=== PATIENT | male | born 1995 | race Caucasian/White ===

== ENCOUNTER 2017-07-25 09:56 | Emergency (ER) | payer OTHER ==
[~2017-07-25] VITALS: Ht 188 cm; Wt 74.3 kg
[2017-07-25 10:03] VITALS: TEMP 36.4; Ht 188 cm; Wt 74.3 kg
[2017-07-25 10:21] VITALS: O2SAT 100
--- NOTE | 2017-07-25 10:32 | EMERGENCY ROOM VISIT NOTE ---
History First contact with patient: 10:15 Chief Complaint: CHEST PAIN Stated Complaint: CHEAST PAINS, SOB, LIGHTHEADED Nursing Triage Summary: Chest pain for a few hours, lightheaded. Hx aortic valve stenosis. Chest pain 04/27. History of Present Illness The patient is a 21 year old male who presents to the Emergency Room with complaints of generalized chest pain worse over the past 4-6 hours. The patient states that he has had intermittent chest pain for the past couple of weeks. Pain seems to be worse with deep breath or movement. Pain is described as a 7 out of 10. There is no radiation. The patient does admit to drinking alcohol last night but denies any other drugs. The patient has a history of aortic stenosis and a heart murmur. He denies shortness of breath. Source of History: patient Symptom Intensity: moderate Quality: pressure Timing: intermittent Modifying Factors (Worsening): breathing, movement Review of Systems All systems have been listed, reviewed, and are negative other than those previously mentioned. Please see Additional Medical History Sheet. Past Medical/Surgical History Medical Problems: (1) No pertinent past medical history Family History No pertinent family history stated. Social History Smoking Status: Never Smoker Alcohol Use: occasionally Drug Use: none Marital Status: single Housing Status: lives with roommate Occupation Status: [employer] student Current/Historical Medications No Active Prescriptions or Reported Meds Physical Exam Vital Signs Date Time Temp Pulse Resp B/P (MAP) Pulse Ox O2 Delivery O2 Flow Rate FiO2 07/25/17 12:56 79 18 104/62 98 07/25/17 11:58 81 18 107/52 100 Room Air 07/25/17 10:21 100 Room Air 07/25/17 10:12 74 07/25/17 10:03 36.4 78 18 126/64 98 Room Air Physical Exam GENERAL: Patient is awake, alert. Patient is oriented x 3. Patient responds appropriately and follows commands. Patient is well-nourished and hydrated. Patient is nontoxic appearing. Alcohol on breath is noted. Patient appears intoxicated. DERMATOLOGIC: No erythema, pallor, cyanosis or rash. No diaphoresis. HEENT: Normal head. Pupils equal, reactive to light and accommodation. Extraocular muscles are intact. CHEST WALL: Nontender. No signs of recent trauma. PULMONARY: Clear to auscultation. No wheezes, no rales, no rhonchi. CARDIOVASCULAR: Split S1. No gallops. No rubs. GASTROENTEROLOGIC: No masses, no rebound, no hepatomegaly or splenomegaly. Nontender. No peritonitis. MUSCULOSKELETAL: No signs of trauma. No pedal or pretibial edema. NEUROLOGIC: No gross motor sensory function deficits. Medical Decision & Procedures ER Provider Diagnostic Interpretation: X ray results are stated below per my interpretation and the radiologist's interpretation. CHEST ONE VIEW PORTABLE FINDINGS: Cardiomediastinal and hilar silhouettes are within normal limits. No pneumothorax, pleural effusion or focal airspace consolidation. No overt pulmonary edema. Bones and soft tissues appear grossly unremarkable. IMPRESSION: No acute cardiopulmonary process. The above report was generated using voice recognition software. It may contain grammatical, syntax or spelling errors. Electronically signed by: Brayan Cristina M.D. 07/25/2017 10:55 AM Laboratory Results 07/25/17 10:20 07/25/17 10:20 Test 07/25/17 10:20 07/25/17 10:49 07/25/17 12:01 Red Blood Count 4.89 M/uL (4.7-6.1) Mean Corpuscular Volume 88.1 fL (80-100) Mean Corpuscular Hemoglobin 30.5 pg (25-34) Mean Corpuscular Hemoglobin Concent 34.6 g/dl (32-36) RDW Standard Deviation 38.7 fL (36.4-46.3) RDW Coefficient of Variation 12.1 % (11.5-14.5) Mean Platelet Volume 9.3 fL (7.4-10.4) Anion Gap 10.0 mmol/L (3-11) Est Creatinine Clear Calc Drug Dose 103.2 ml/min Estimated GFR () 100.3 Estimated GFR (Non- 86.5 BUN/Creatinine Ratio 15.9 (10-20) Calcium Level 9.4 mg/dl (8.5-10.1) Ethyl Alcohol mg/dL 18.5 mg/dl (0-3) Bedside Troponin I < 0.030 ng/ml (0-0.045) Laboratory results as stated above per my review. ECG Indication: chest pain Rate (beats per minute): 72 Rhythm: normal sinus Findings: other (T wave abnormality incomplete right bundle-branch block. Prolonged QT) Comparison ECG Date: no prior available ED Course 1005: Past medical records reviewed. The patient was evaluated in room A9B. A complete history and physical examination was performed. 1138: I reassessed the patient. He is feeling better, awaiting repeat Troponin. 1225: Upon reevaluation, the patient appeared to have improvement of his symptoms. I discussed today's findings with him. He verbalized agreement of the treatment plan. The patient would like me to call his sister who is a physician. I received permission to discuss the patient's case with her. The patient was discharged home. 0130: I obtained and reviewed previous paperwork from the [facility]. Medical Decision 21-year-old male with chest pain intermittent over the past 2-3 weeks but worse over the past 4-6 hours. The patient appears intoxicated. The patient has a prior history of aortic stenosis. Multiple labs, EKG and imaging were obtained. Please see above. Chest x-ray is unremarkable. Troponins were not elevated. EKG reveals a incomplete right bundle branch block with a prolonged QT. I do not believe this represents an acute injury pattern. Electrolytes are within normal range. The patient is not anemic. The patient is slightly hypoglycemic with a blood sugar of 59. The patient was able to drink fluids and felt significantly better. He was given something to keep here. The patient's alcohol level was elevated consistent with his history of drinking. He was able to take nonalcoholic fluids here which did seem to make him feel significantly better. The patient was advised to avoid excessive alcohol in the future. Whether this was related to the cause of his symptoms remains uncertain. 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 He is to call them Thursday morning Medication Reconcilliation Current Medication List: was personally reviewed by me Blood Pressure Screening Patient's blood pressure: Normal blood pressure Blood pressure disposition: Did not require urgent referral Impression Primary Impression: Substernal precordial chest pain Additional Impression: Hypoglycemia Departure Information Dispostion Home / Self-Care Prescriptions No Active Prescriptions or Reported Meds Referrals No Doctor, Assigned (PCP) Patient Instructions [facility] [place] [facility] Additional Instructions Drink extra nonalcohol containing fluids today. Follow-up with [facility] this week and have your blood sugar rechecked. Call your bath mix operator Thursday morning for follow-up. Return here sooner if you're having more chest pain. Avoid alcohol. Problem Qualifiers
[2017-07-25 10:39] LABS: HEMATOCRIT 43.1 % (42-52); MEAN CELL VOLUME 88.1 fL (80-100); MEAN CORPUSCULAR HEMOGLOBIN 30.5 pg (25-34); MEAN CORPUSCULAR HGB CONC 34.6 g/dl (32-36); MEAN PLATELET VOLUME 9.3 fL (7.4-10.4); PLATELET COUNT 287 K/uL (130-400); RED BLOOD COUNT 4.89 M/uL (4.7-6.1); WHITE BLOOD COUNT 12.62 K/uL (4.8-10.8)
--- NOTE | 2017-07-25 10:57 | DIAGNOSTIC IMAGING REPORT ---
CHEST ONE VIEW PORTABLE HISTORY: 21 years-old Male chest pain acute atypical chest pain COMPARISON: None available TECHNIQUE: Portable upright AP view of the chest FINDINGS: Cardiomediastinal and hilar silhouettes are within normal limits. No pneumothorax, pleural effusion or focal airspace consolidation. No overt pulmonary edema. Bones and soft tissues appear grossly unremarkable. IMPRESSION: No acute cardiopulmonary process. The above report was generated using voice recognition software. It may contain grammatical, syntax or spelling errors. Electronically signed by: Brayan Cristina M.D. 07/25/2017 10:55 AM Dictated Date/Time: 07/25/2017 10:55 AM
[2017-07-25 11:01] LABS: BUN/CREATININE RATIO 15.9 (10-20); CALCIUM 9.4 mg/dl (8.5-10.1); CREATININE 1.2 mg/dl (0.60-1.40); POTASSIUM 3.9 mmol/L (3.5-5.1)
[2017-07-25 12:56] VITALS: BP 104/62; PULSE 79; O2SAT 98
== END 2017-07-25 12:57 | disposition home or self-care (01) ==
LOC: C.EDB 09:57 → C.EDA 12:57
DX: R07.2 Precordial pain (principal); E16.2 Hypoglycemia, unspecified; I45.10 Unspecified right bundle-branch block; I45.81 Long QT syndrome